=== PATIENT | male | born 1965 | race Caucasian/White ===

== ENCOUNTER → 2016-09-02 12:15 | Outpatient (CLI) | payer MEDICAID ==
[2015-07-31 13:51] VITALS: BMI 31.9
[~2016-09-02 12:15] MED LIST: ATIVAN1 MG PO; CALAN SR240 MG PO; CATAPRES0.1 MG PO; NAPROSYN500 MG PO; PRILOSEC20 MG PO; PRINIVIL20 MG PO; ZYLOPRIM300 MG PO
== END | disposition home or self-care (01) ==
LOC: D.MRI 12:15
DX: M25.511 Pain in right shoulder (principal)

== ENCOUNTER 2016-10-21 07:35 | Day surgery (SDC) | payer MEDICAID ==
[2016-10-18 08:32] LABS: HEMATOCRIT 41.8 % (42.0-54.0); HEMOGLOBIN 14.6 g/dL (13.5-17.5); MCH 32.2 pg (26.0-34.0); MCHC 34.9 g/dL (31.0-37.0); MCV 92.1 fL (80.0-100.0); MEAN PLATELET VOLUME 9.6 fL (7.4-10.4); RBC 4.54 10x6/uL (4.20-6.10); RDW 12.9 % (11.5-14.5); WBC 4.8 10x3/uL (4.8-10.8)
[~2016-10-21] VITALS: Ht 182.9 cm; Wt 108.9 kg
[2016-10-21 06:53] VITALS: BP 148/84; Ht 182.9 cm; Wt 108.9 kg
[~2016-10-21 07:35] MED LIST changes: +DIOVAN160 MG PO; +NORCO 7.5/325 T1 TA1 PO; +NORMODYNE / TR200 MG PO
[2016-10-21] MEDS ORDERED: HYDROCODONE-APA1 TAB PO (10:21)
--- NOTE | 2016-10-21 17:32 | NUR ---
1230 DRESSED. GIVEN DISCHARGE INFORMATION INCLUDING: RX FOR NORCO 10/325MG, MED REC., [facility] OUTPATIENT DISCHARGE INSTRUCTIONS, PENDULUM EXERCISE SHEET, & POST OP INSTRUCTIONS FOR ARTHROSCOPY OF THE SHOULDER SHEET, & PERPHERAL NERVE BLOCK POST OP INSTRUCTIONS [facility]. PT & VOICED UNDERSTANDING. TO PRIVATE CAR PER WHEELCHAIR BY VOLUNTEER. HOME WITH MRS. TOMAS. Karlo BOWLING R.N.
--- NOTE | 2016-11-07 13:14 | OP ---
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 PROCEDURES: 1. Right shoulder arthroscopy with distal clavicle excision. 2. Arthroscopic subacromial decompression of the right shoulder. SURGEON: Adrian Shah MD ANESTHESIA: General. INTRAOPERATIVE COMPLICATIONS: None. 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 OPERATIVE SUMMARY IN DETAIL: After obtaining the appropriate preoperative orthopedic surgery consent, as well as anesthetic consultation, evaluation and clearance, the patient was brought to the operating room and placed on the operating table in supine position. After general laryngeal mask was administered, the patient was placed in a left lateral decubitus position. All pressure points were well padded to include down leg peroneal pad, as well as axillary roll. The patient was held firmly to the operating table using the vacuum pack suction system. The patient's right upper extremity and shoulder were then prepped and draped in a routine sterile fashion. The arm was held in the Arthrex traction boom at 30 degrees of forward flexion, 30 degrees of abduction with 10 pounds of traction laterally. Arthroscopy was established in the glenohumeral joint from a posterior portal. Anterior portal was established in the anterior safe interval. Diagnostic arthroscopy did show the patient had some undersurface tearing of the rotator cuff; however, not a substantial, arthroscopy was then established in the subacromial space. While in the subacromial space, a 3.5 full radius resector in conjunction with a surface tissue ablation system was utilized to denude the undersurface of the acromion of all soft tissue elements. A 5-0 barrel bur was used to perform acromioplasty at the level of acromioclavicular joint. Having completed this, attention was turned to the distal clavicle with arthroscopic removal of 1 cm distal clavicle was taken down under direct arthroscopic visualization. Having completed this, arthroscopy portals were closed in routine interrupted fashion using 4-0 Prolene. Sterile dressings were applied. The patient was awakened and taken to recovery room in stable condition. All final needle and sponge counts were correct. OPERATIVE REPORT [id number] MARIYA TOMAS TRANSINT:[id number] Voice Confirmation ID: [id number] DOCUMENT ID: [id number] ALYSSA RIVERA, ADRIAN PEREZ at 1314 CC: [id number] DICTATION DATE: 11/01/16 1021 CAREER GUIDANCE COUNSELOR: 11/06/16 2332 [facility] 10/21/16 [id number] [place] [address]
== END 2016-10-21 12:30 | disposition home or self-care (01) ==
LOC: D.OPS 07:35 → D.PAN 08:30 → D.OPS 08:50 → D.PAN 08:50 → D.OPS 12:30
PROVIDERS: Anesthesiology
DX: M75.41 Impingement syndrome of right shoulder (principal); M13.811 Other specified arthritis, right shoulder; M75.111 Incomplete rotator cuff tear or rupture of right shoulder, not specified as traumatic; M94.211 Chondromalacia, right shoulder; M25.711 Osteophyte, right shoulder; Z01.812 Encounter for preprocedural laboratory examination

== ENCOUNTER → 2018-05-04 16:21 | Outpatient (CLI) | payer MEDICAID ==
[2016-10-21 06:53] VITALS: BMI 32.6
[~2018-05-04 16:21] MED LIST changes: +HYDROCODONE-APA1 TAB PO
== END | disposition home or self-care (01) ==
LOC: D.CT 16:21
DX: R93.1 Abnormal findings on diagnostic imaging of heart and coronary circulation (principal)

== ENCOUNTER → 2020-10-06 14:50 | Outpatient (CLI) | payer OTHER ==
[2016-10-21 06:53] VITALS: BMI 32.6
== END | disposition home or self-care (01) ==
LOC: D.CT 14:50
PROVIDERS: ATTEND Nurse Practitioner
DX: K43.9 Ventral hernia without obstruction or gangrene (principal)